=== PATIENT | female | born 1950 | race Two or more races ===

== ENCOUNTER 2025-02-05 08:30 | Outpatient (RCR) | payer OTHER, MEDICAID, SELFPAY ==
--- NOTE | 2025-02-04 08:17 | XR_ITS ---
Examination: Nuclear medicine thyroid scan and uptake Date and time: February 04, 2025 0819 hours INDICATIONS: Partial thyroidectomy 9 years ago with difficulty swallowing months TECHNIQUE AND FINDINGS: Oral administration [id number] uCi [id number] Pinhole and chest images obtained to 24 hours Mild diffuse uptake in the thyroid bed IMPRESSION: Mild diffuse uptake in the thyroid bed Recommend follow-up ultrasound soft tissue neck
== END 2025-02-10 23:59 | disposition home or self-care (01) ==
LOC: SNUC 08:30
PROVIDERS: PCP Physician Assistant; Referring Provider Physician Assistant; Visit Provider Physician Assistant
DX: E03.9 Hypothyroidism, unspecified (principal)
CPT/HCPCS: 78013; A9516